=== PATIENT | male | born 1995 | race Caucasian/White ===

== ENCOUNTER 2017-01-06 11:58 | Inpatient (IN) | payer BC, OTHER ==
[~2017-01-06] VITALS: Ht 182.9 cm; Wt 64.0 kg
[2017-01-06] MEDS ORDERED: ONDANSETRON ODT 4 MG TAB.RAPDIS SL PRN (12:30)
[2017-01-06] MEDS ORDERED: LOPERAMIDE HCL 2 MG CAPSULE PO PRN ×2 (12:30)
[2017-01-06] MEDS ORDERED: ONDANSETRON 4 MG/2 ML VIAL IM PRN (12:30)
[2017-01-06] MEDS ORDERED: LORAZEPAM 1 MG TABLET PO PRN (12:30)
[2017-01-06] MEDS ORDERED: IBUPROFEN 600 MG TABLET PO PRN (12:30)
[2017-01-06] MEDS ORDERED: ACETAMINOPHEN 325 MG TABLET PO PRN (12:30)
[2017-01-06] MEDS ORDERED: DICYCLOMINE HCL 20 MG TABLET PO PRN (12:30)
[2017-01-06] MEDS ORDERED: MAG HYDROX/AL HYDROX/SIMETH 30 ML LIQUID UDC PO PRN (12:30)
[2017-01-06] MEDS ORDERED: BUPRENORPHINE HCL 2 MG TAB.SUBL SL PRN (12:30)
[2017-01-06] MEDS ORDERED: CLONIDINE HCL 0.1 MG TABLET PO PRN (12:30)
[2017-01-06] MEDS ORDERED: MAGNESIUM HYDROXIDE 30 ML LIQUID UDC PO PRN (12:30)
[2017-01-06] MEDS ORDERED: HYDROXYZINE PAMOATE 25 MG CAPSULE PO PRN (12:30)
[2017-01-06] MEDS ORDERED: MIRALAX 17 GM POWD.PACK PO PRN (12:30)
--- NOTE | 2017-01-06 12:30 | NUR ---
INTAKE ASSESSMENT Received patient in intake. He is AOX4, stable, and ambulatory. Vital signs WNL. Patient reports NKA. Patient denies seizure hx. Pt did not bring any home medications with him. Explained unit protocols and patient verbalized understanding. Will admit patient upon admission to third floor.
--- NOTE | 2017-01-06 14:45 | NUR ---
ADMISSION NOTE Pt is a 21 year old male, admitted on 01/07/16 at 12:48 for Heroin and methamphetamine Dependence and medically supervised withdrawals. Pts skin and body check completed, no contraband found, Pt has a small healed pick villafana all over his body . Pt awake, alert, oriented x 4, gait steady, pt is ambulatory without assistance. Pt weights 140 pounds and his height is 60. Denies any history of seizures. Pt escorted to room 302 where the rest of assessment was completed. Pt is primary source of information, information consistent, speech coherent. Pt did not bring any home medications. Pt refused PNA and Flu Vaccinations stating that he will receive it somewhere else. Pt states that he does not have a PCP and pt denies having a psychiatrist or a psychologist. Pt requested to be full code, regular diet on fall precautions, Pt denies any allergies. His last BM was on 01/05/17. Pt states that he lives in a house with his Parents. Pt denies smoking cigarettes. Pt denies being admitted to a hospital in the past 30 days, Pt is not a candidate for MRSA. Pts initial vital signs are BP: 117/67, Temp: 98.3, Pulse: 96 SPO2: 98% RR:18 and states that he has 0/10 pain. Pts initial COWS score was a 7. Pt denies any PMH. Pt denies being sober for any period of time during his use. Pt stated that he does not attend AA meetings. Pt reported family history of abuse, his grandfather, grandfather and father were alcoholics. Pt denies any suicidal or homicidal ideations. Substance use Hx: 1.Heroin: Pt reported first using when he was 1year ago, he has been injecting and smoking 1-2 grams daily for 6 months, his last use was 2 days ago, 1 gram IV. 2.Meth: Pt first used meth at age 18, he has been smoking/injecting 1 gram daily, he last used 2 days ago 1 gram IV. Rehab history: Pt denies any rehab history, it his first time in treatment. Pt cooperative, appears depressed, reports moderate anxiety. Educated on relaxation techniques (deep breathing) pt verbalized understanding. Pt denies SI/HI at this time, denies hallucinations. Skin warm and moist from sweat, color pink, consistent throughout the body. Eyes PERLLA, tremors not noted but felt. Pt denied tingling. All extremities with full ROM. Lung sounds clear bilaterally, no cough present, pt denies SOB. Heart rate regular. Cap refill <3 sec. No edema noted. Abdomen soft, round, bowel sounds active x 4, non tender. Pt denies urinary difficulties, urine was provided and sent to lab. Pt oriented to unit, room, equipment, shown how to use call light, provided returned demonstration. Fall precautions in place. Side rails up x2, call light within reach, bed locked in low position. MD contacted and aware of patients condition. All admitting orders have been placed, Pt is placed on a 5 day Subutex taper which starts tomorrow.
[2017-01-06 16:00] VITALS: BP 120/65
[2017-01-06 16:10] LABS: *AMPHETAMINE, URINE POSITIVE (NEGATIVE); *BARBITURATE, URINE NEGATIVE (NEGATIVE); *CANNABINOID, URINE POSITIVE (NEGATIVE); *COCCAINE, URINE NEGATIVE (NEGATIVE); *OPIATE, URINE POSITIVE (NEGATIVE); *PHENCYCLIDINE SCREEN,URINE NEGATIVE (NEGATIVE)
[2017-01-06] MEDS: BUPRENORPHINE HCL 2 MG TAB.SUBL SL SCH ×2 (16:44→20:42)
--- NOTE | 2017-01-06 19:21 | NUR ---
End Of Shift VS monitored closely. Withdrawal symptoms were closely monitored. Initial COWS 7. Patient encouraged adequate PO fluid intake as tolerated. Patient presented with tremors and anxiety during the day. Last COWS 10. Pt received a dose of Subutex 4mg. Pt ate all of his meals. Pt received PRN Vistaril for anxiety which was effective. Patient encouraged to attend group therapies/sessions to learn new coping skills to recent relapse, patient denies SI/HI. Participated in group and therapy sessions. All needs met and attended, pt endorsed to shift coordinator nurse.
[2017-01-06 20:00] VITALS: BP 124/74
--- NOTE | 2017-01-06 20:00 | NUR ---
Start of Shift Note Received a 21 year old male, admitted on 01/07/16 at 12:48 for Heroin and methamphetamine dependence. A&Ox4, gait steady, px is ambulatory without assistance. Denies any history of seizures. Px is on full code, regular diet, NKA and on fall precautions. During the rounds at 1999, Px cooperative, appears depressed, reports mild anxiety. Complained of generalized body ache 09/30. Requesting also for pill to help him sleep. Fall precautions in place. Side rails up x2, call light within reach, bed locked in low position. Respirations are even and unlabored. Bed on lowest position, side rails up x2. Call light within reach. Well continue to monitor.
[2017-01-06] MEDS: diphenhydrAMINE 50 MG CAPSULE PO PRN (20:41)
[2017-01-06] MEDS: METHOCARBAMOL 750 MG TABLET PO PRN (20:41)
--- NOTE | 2017-01-06 20:41 | NUR ---
PRN Robaxin and Benadryl Px complained of generalized body aches 09/30 and requested pill to help him sleep. Robaxin 750 mg/tab, 1 tab and Benadryl 50 mg/cap, 1 cap given PO as PRN meds. We'll continue to monitor.
[2017-01-06 21:16] LABS: BASOPHILS # (AUTO) 0.1 K/uL (0.0-8.0); BASOPHILS % (AUTO) 0.6 % (0.0-2.0); EOSINOPHILS # (AUTO) 0.1 K/uL (0.0-0.7); EOSINOPHILS % (AUTO) 0.6 % (0.0-7.0); HEMATOCRIT 43.9 % (40-50); HEMOGLOBIN 14.6 G/DL (14.0-18.0); LYMPHOCYTES # (AUTO) 2.7 K/UL (0.8-4.8); LYMPHOCYTES % (AUTO) 18.1 % (20.5-51.5); MEAN CORPUSCULAR HGB CONC 33 g/dL (32.0-37.0); MEAN CORPUSCULAR VOLUME 86.9 FL (82.0-92.0); MONOCYTES # (AUTO) 0.7 K/UL (0.1-1.30); NEUTROPHILS # (AUTO) 11.3 K/UL (1.8-8.9); NEUTROPHILS % (AUTO) 75.7 % (38.5-71.5); PLATELET COUNT (AUTO) 347 K/UL (150-450); RED BLOOD CELL COUNT(AUTO) 5.05 MIL/UL (4.7-6.1); WHITE BLOOD COUNT (AUTO) 14.9 K/UL (4.0-11.2)
[2017-01-06 21:30] LABS: ETHANOL < 3 MG/DL (0-0)
[2017-01-06 21:34] LABS: ALANINE AMINOTRANSFERASE 21 U/L (16-63); ALKALINE PHOSPHATASE 70 U/L (50-136); ASPARTATE AMINOTRANSFERASE 9 U/L (15-37); BILIRUBIN,TOTAL 0.2 mg/dL (0.2-1.0); CARBON DIOXIDE 30 mmol/L (21-32); CHLORIDE 107 mmol/L (98-107); CREATININE 0.9 mg/dL (0.6-1.3); GLUCOSE 95 mg/dL (74-106); TOTAL PROTEIN, SERUM 7.1 g/dL (6.4-8.2); UREA NITROGEN, BLOOD 11 mg/dL (7-18)
--- NOTE | 2017-01-06 21:41 | NUR ---
Reassessment of Pain Reassessment of pain was deferred due to the px is sleeping at this time. Respirations are even and unlabored. We'll continue to monitor.
[2017-01-07] VITALS: BP 114/65
--- NOTE | 2017-01-07 | NUR ---
COWS deferred COWS deferred due to the px is sleeping, to be assess if the px is awake per doctor's order. Respirations are even and unlabored. We'll continue to monitor.
[2017-01-07 04:00] VITALS: BP 109/69
--- NOTE | 2017-01-07 07:23 | NUR ---
End of Shift Note 21 year old male, admitted on 01/07/16 at 12:48 for Heroin and methamphetamine dependence. A&Ox4, gait steady, px is ambulatory without assistance. Denies any history of seizures. Px is on full code, regular diet on fall precautions, NKA. During the shift, complained of generalized body ache 10 and requesting a pill to help him sleep. Robaxin 750 mg/tab, 1 tab and Benadryl 50 mg/cap, 1 cap given PO as PRN meds. Oral intake of 400 ml, voided 1x, No BM. Slept for 9.5 hrs. Fall precautions in place. Side rails up x2, call light within reach, bed locked in low position. Respirations are even and unlabored. We'll continue to monitor.
--- NOTE | 2017-01-07 07:45 | NUR ---
START OF SHIFT Rcvd endorsement from ongoing nurse, client is in bed, he is a/o x name, place, he presents with depressed mood, flat affect, watery eyes, runny nose, Goosebump, and no appetite. Client noted with scattered self inflicted by picking at skin superficial wounds on R side of neck, R hand, bilateral knee; he is on triple antibiotic topical BID. Encouraged client to attend group therapy for skills to maintain sober. Encouraged client to increase PO fluid as tolerated to facilitate detox. Client is a 21 y/o male, admitted to [facility] for withdrawal from heroin. Client is on 5 day Subutex taper, tolerating well. Last COWS 6 @ 2000. He denies any hx of of withdrawal-induced seizures, he is on universal precautions. He reports of allergy to cat dander, he is full code, Regular diet. Side rails x 2 up/padded. Call light within reach.
[2017-01-07 08:00] VITALS: BP 108/73
[2017-01-07] MEDS ORDERED: TUBERCULIN,PURIF.PROT.DERIV. 5 TU/0.1 ML TEST ID ONE (09:00)
[2017-01-07] MEDS: BUPRENORPHINE HCL 2 MG TAB.SUBL SL SCH ×3 (09:53→20:47)
[2017-01-07] MEDS: NEOMY/BACITRAC/POLYMI OINT 28.35 GM TUBE TOP SCH ×2 (09:53→17:18)
[2017-01-07 12:55] VITALS: BP 110/69
[2017-01-07] MEDS: METHOCARBAMOL 750 MG TABLET PO PRN (14:50)
--- NOTE | 2017-01-07 14:50 | NUR ---
PRN Robaxin 750mg PO, Tylenol 650mg PO, and Bentyl 20mg PO given for generalized muscle pain, body aches 7/10, and abdominal spasms respectively. Encourage to increase PO fluid as tolerated to facilitate detox. Call light within reach. will continue to monitor.
--- NOTE | 2017-01-07 15:50 | NUR ---
Reassessment PRN Robaxin 750mg PO, Tylenol 650mg PO, and Bentyl 20mg PO effective client is in bed, sounc asleep, RR 16 even, non-labored. Call light within reach.
[2017-01-07 16:55] VITALS: BP 116/66
--- NOTE | 2017-01-07 19:15 | NUR ---
END OF SHIFT Client is a 21 y/o male, admitted to [facility] for withdrawal from heroin. Client is on 5 day Subutex taper, tolerating well. Last COWS 10 @ 1600. PRN Robaxin 750mg PO, Tylenol 650mg PO, and Bentyl 20mg PO given for generalized muscle pain, body aches 7/10, and abdominal spasms respectively, noted effective. Encouragement needed to comply with group therapy to help with skills to maintain sober. Adequate fluid PO intake 2134mL, void x 3.He denies any hx of of withdrawal-induced seizures, he is on universal precautions. He reports of allergy to cat dander, he is full code, Regular diet. Side rails x 2 up/padded. Call light within reach.
--- NOTE | 2017-01-07 19:30 | NUR ---
Start of Shift Note Received a 21 year old male, admitted on 01/07/16 at 12:48 for Heroin and methamphetamine dependence. A&Ox4, gait steady, px is ambulatory without assistance. Denies any history of seizures. Px is on full code, regular diet, NKA and on fall precautions. During the rounds at 1930, Px cooperative, reports depressed. Complained of generalized body ache 5/10. Requesting also for pill to help him sleep. COWS 5. Fall precautions in place. Side rails up x2, call light within reach, bed locked in low position. Respirations are even and unlabored. Bed on lowest position, side rails up x2. Call light within reach. We'll continue to monitor.
[2017-01-07 20:00] VITALS: BP 102/61
[2017-01-07] MEDS: GABAPENTIN 300 MG CAPSULE PO SCH (20:46)
[2017-01-07] MEDS: diphenhydrAMINE 50 MG CAPSULE PO PRN (20:47)
[2017-01-07] MEDS: DOXYCYCLINE HYCLATE 100 MG TABLET PO SCH (20:47)
--- NOTE | 2017-01-07 20:47 | NUR ---
PRN Benadryl and Motrin Px complained of generalized body aches 5/10 and requesting for pill to help him sleep. Motrin 600 mg/tab, 1 tab and Benadryl 50 mg/cap, 1 cap given PO as PRN meds. We'll continue to monitor.
--- NOTE | 2017-01-07 21:47 | NUR ---
Reassessment of pain Px verbalized that the pain improved from 5/10 to 3/10. We'll continue to monitor.
[2017-01-08] VITALS: BP 118/55
[2017-01-08 04:00] VITALS: BP 102/57
[2017-01-08 07:06] LABS: HEPATITIS B SURFACE AG Negative (Negative)
--- NOTE | 2017-01-08 07:16 | NUR ---
End of Shift Note 21 year old male, admitted on 01/07/16 at 12:48 for Heroin and methamphetamine dependence. A&Ox4, gait steady, px is ambulatory without assistance. Denies any history of seizures. Px is on full code, regular diet, NKA and on fall precautions. During the shift, Px reports hes depressed more than anxious. Px complained of generalized body aches 5/10 and requesting for pill to help him sleep. Motrin 600 mg/tab, 1 tab and Benadryl 50 mg/cap, 1 cap given PO as PRN meds. Px verbalized that the pain improved from 5/10 to 3/10 after an hour of Motrin administration. Oral intake of 1,200 ml, voided x2, no BM. Slept for [address] hrs[address] Fall precautions in place. Side rails up x2, call light within reach, bed locked in low position. Respirations are even and unlabored. Last COWS 5. We'll continue to monitor.
[2017-01-08 08:00] VITALS: BP 100/64
--- NOTE | 2017-01-08 08:05 | NUR ---
START OF SHIFT: RECEIVED PT A/O X 4. HE PRESENTS WITH ANXIOUS MOOD AND CONGRUENT AFFECT.HE REPORTS BODY ACHES,CHILLS,SWEATS AND ANXIETY. COWS 8. SUBUTEX TAPER IN PROGRESS TO MANAGE S/S OF W/D. HE STATES THE DETOX MEDS ARE EFFECTIVE. ENCOURAGED INCREASED FLUIDS TO ASSIST IN FACILITATING DETOX PROCESS. WILL CONTINUE TO MONITOR AND OFFER SUPPORT.
[2017-01-08] MEDS ORDERED: BUPRENORPHINE HCL 2 MG TAB.SUBL SL SCH (09:00)
[2017-01-08] MEDS: GABAPENTIN 300 MG CAPSULE PO SCH ×3 (09:17→20:23)
[2017-01-08] MEDS: DOXYCYCLINE HYCLATE 100 MG TABLET PO SCH ×2 (09:17→20:23)
[2017-01-08] MEDS: NEOMY/BACITRAC/POLYMI OINT 28.35 GM TUBE TOP SCH ×2 (09:18→17:00)
--- NOTE | 2017-01-08 10:00 | NUR ---
Activity Group Note: Attempt made for group participation. Client refused. Will attempt when time permits.
[2017-01-08 12:00] VITALS: BP 112/60
--- NOTE | 2017-01-08 13:45 | NUR ---
Activity Group Note: Attempt made for group participation. Client refused. Will attempt again when time permits.
--- NOTE | 2017-01-08 14:11 | NUR ---
Therapist prompted client about group times. Client stated he will attend groups today.
[2017-01-08] MEDS: BUPRENORPHINE HCL 2 MG TAB.SUBL SL SCH ×2 (15:44→20:23)
[2017-01-08 16:00] VITALS: BP 125/60
--- NOTE | 2017-01-08 18:47 | NUR ---
END OF SHIFT: PT CONTINUES ON SUBUTEX TAPER. LAST COWS 6. HE ISOLATED IN HIS ROOM MOST OF SHIFT WITH VERY LITTLE INTERACTION WITH PEERS. HE C/O CHILLS,BODY ACHES,SWEATS AND ANXIETY EARLIER THIS AM AND STATES THE DETOX MEDS ARE EFFECTIVE. HE WAS COMPLIANT WITH INCREASED FLUIDS . WILL PASS SHIFT REPORT TO ONCOMING NIGHT NURSE.
--- NOTE | 2017-01-08 19:00 | NUR ---
Start of Shift Patient Received. Patient is in his room, awake, alert and verbally responsive. Breathing even and non labored. Patient is a 21 year old male admitted on 01/06/17 for Opiate Dependence under the care of Dr. Neri. Patient is continuing on a 5 day Subutex taper. Patient verbalizes no known allergies, wishes to be full code, following a regular diet, placed on fall precautions. Skin noted with multiple scabs throughout his body due to his substance use. Patient denies past medical history. Per endorsement, patient continues on Doxycycline for Multiple scattered open wounds. No PRN medications administered. Last noted COWS 6. All needs attended to promptly. Will continue plan of care as ordered.
[2017-01-08 20:20] VITALS: BP 121/70
[2017-01-08] MEDS: diphenhydrAMINE 50 MG CAPSULE PO PRN (20:23)
[2017-01-08] MEDS: CLONIDINE HCL 0.1 MG TABLET PO SCH (20:23)
--- NOTE | 2017-01-08 20:23 | NUR ---
PRN Medication Administration patient verbalizing inability of falling asleep. PRN Benadryl administered as per orders. Will continue to monitor.
--- NOTE | 2017-01-08 21:30 | NUR ---
PRN Medication Reassessment Patient noted in bed sleeping. Breathing even and non labored. PRN Benadryl noted to be effective. Will continue to monitor.
[2017-01-09 00:12] VITALS: BP 102/59
[2017-01-09 04:00] VITALS: BP 99/54
--- NOTE | 2017-01-09 07:20 | NUR ---
End of Shift Patient is in bed sleeping but easily aroused to verbal stimuli. Breathing even and non labored. Patient is a 21 year old male admitted on 01/06/17 for Opiate Dependence and continues on a 5 day Subutex taper. No known allergies, Full Code, Regular Diet, placed on fall precautions. Skin noted with multiple scabs throughout his body due to his substance use. Patient denies past medical history. Patient continues on Doxycycline for Multiple scattered open wounds. Patient was given PRN Benadryl for sleep with medication noted to be effective. Patient slept 9 hours. Last noted COWS 5. All needs attended to promptly. Will endorse to continue plan of care as ordered.
--- NOTE | 2017-01-09 07:42 | NUR ---
BEGINNING OF SHIFT Patient endorsement report received from worm sorter nurse, all pertinent information discussed. Patient is a 21 year old Male admitted on: 01/06/2017 with admitting Dx:Opiate dependence, And substance use of:Methamphetamine. Patient currently under close observation, continues on 5 day Subutex taper as ordered, and is scheduled to begin day 4 of taper. Per worm sorter patient slept for 9 hours, received PRN: Benadryl as ordered. Patient with last cow score of: 5. Patient received awake, alert and oriented x4, patient educated regarding plan of care and medication regimen for the day with good verbal understanding. Safety measures in place. call light kept with in reach, will continue to monitor.
[2017-01-09 08:36] VITALS: BP 106/64
[2017-01-09] MEDS: BUPRENORPHINE HCL 2 MG TAB.SUBL SL SCH ×3 (08:37→21:38)
[2017-01-09] MEDS: NEOMY/BACITRAC/POLYMI OINT 28.35 GM TUBE TOP SCH ×2 (08:37→17:12)
[2017-01-09] MEDS: DOXYCYCLINE HYCLATE 100 MG TABLET PO SCH ×2 (08:37→21:38)
[2017-01-09] MEDS: GABAPENTIN 300 MG CAPSULE PO SCH (08:37)
[2017-01-09] MEDS: CLONIDINE HCL 0.1 MG TABLET PO SCH ×3 (08:38→21:39)
--- NOTE | 2017-01-09 10:37 | NUR ---
WOUND CARE CONSULT WOUND CARE RECEIVED CONSULT AND WILL DEFER TO SURGICAL TEAM AT THIS TIME. PATIENT HAD INITIAL I+D DONE IN ER AT [facility] AND MAY STILL REQUIRE ADDITIONAL I+D. DR MCKAYLA KOCH HAS BEEN CALLED TO EVALUATE PATIENT. PATIENT CURRENT BRANDON AT 21. Addendum: 01/09/17 at 1039 by JUSTYNA PARDO WNDNU DISCUSSED WITH RUBBER STAMP MAKER VIA PHONE.
--- NOTE | 2017-01-09 13:45 | NUR ---
Activity Group Note: Client participated in "R[employer]" activity. Intervention goal was to increase task focus and leisure skills. Client arrived 30 minutes late to activity, but he was willing to participate. Client was able to understand and complete the task. He appeared to have a calm affect with congruent mood. He was able to initiate conversation with peers. Client stated that he was "glad he went to yoga yesterday and was curious what today would be like." Client benefits from leisure activities and social interaction with peers. merchandise worker will continue to encourage participation.
[2017-01-09 13:50] VITALS: BP 113/62
[2017-01-09] MEDS: GABAPENTIN 400 MG CAPSULE PO SCH ×2 (14:07→21:38)
[2017-01-09 16:50] VITALS: BP_SYST 103; BP_SYST 113; BP_DIAS 61; BP_DIAS 62
--- NOTE | 2017-01-09 18:51 | NUR ---
END OF SHIFT Patient alert and oriented x4, vital signs were stable during shift. Patient compliant with therapeutic plan of care. Patients continues under close observation. patient with admitting Dx: opiate dependence. currently with ongoing taper of Subutex 5 day, currently on day 4 of taper, well tolerated, no ASE noted, continues under close observation. 0900 assessment patient presented with: heart rate of 82, yawning, mild anxiety and mild bone and Joint aches with cow score of: 5; 1300 assessment patient presented with: heart rate of 89, mild and anxiety and mild bone and joint aches with cow score of: 3; 1700 assessment patient presented with: heart rate of 82 mild and anxiety and mild bone and joint aches with cow score of: 3. Patient encouraged adequate PO fluid intake as tolerated. Patient encouraged to attend group therapies/sessions to learn new coping skills to prevent relapse. Denies SI/HI. safety measures in place. call light kept with in reach, patient endorsed to catheterization laboratory technician nurse, all pertinent information discussed. will continue to monitor.
--- NOTE | 2017-01-09 19:00 | NUR ---
Start of Shift Patient Received. Patient is noted in bed awake, alert and verbally responsive. Breathing even and non labored. Patient is a 21 year old male admitted on 01/06/17 for Opiate Dependence and continues on a 5 day Subutex taper. No known allergies, Full Code, Regular Diet, placed on fall precautions. Skin noted with multiple scabs throughout his body due to his substance use and continues on ATB Therapy of Doxycycline. Patient denies past medical history. No PRN medications administered as per order. Last noted COWS 3. All needs attended to promptly. Will continue plan of care as ordered.
[2017-01-09 20:30] VITALS: BP 111/66
[2017-01-09] MEDS: diphenhydrAMINE 50 MG CAPSULE PO PRN (21:38)
--- NOTE | 2017-01-09 21:40 | NUR ---
PRN Medication Administration Patient is verbalizing inability of falling asleep. PRN Benadryl administered as per order. Will continue to monitor.
--- NOTE | 2017-01-09 22:30 | NUR ---
PRN Medication Reassessment Patient noted in bed sleeping. Breathing even and non labored. No signs of pain or discomfort noted. Patient was given PRN Benadryl for inability of falling asleep. Medication noted to be effective. Will continue to monitor.
[2017-01-10 00:25] VITALS: BP 101/60
[2017-01-10] MEDS: CLONIDINE HCL 0.1 MG TABLET PO SCH ×3 (09:00→21:11)
[2017-01-10] MEDS: DOXYCYCLINE HYCLATE 100 MG TABLET PO SCH ×2 (09:00→21:11)
[2017-01-10] MEDS: NEOMY/BACITRAC/POLYMI OINT 28.35 GM TUBE TOP SCH ×2 (09:00→17:00)
[2017-01-10] MEDS: GABAPENTIN 400 MG CAPSULE PO SCH ×3 (09:00→21:10)
[2017-01-10] MEDS ORDERED: BUPRENORPHINE HCL 2 MG TAB.SUBL SL SCH (09:00)
--- NOTE | 2017-01-10 10:33 | NUR ---
AM MEDS GIVEN ON TIME PER PAPER MAY. CLONIDINE HELD DUE TO LOW BP. PT TOLERATED MEDS WELL AND STATES THEY'RE EFFECTIVE. WILL CONTINUE TO MONITOR AND OFFER SUPPORT.
[2017-01-10 12:00] VITALS: BP 115/60
--- NOTE | 2017-01-10 13:45 | NUR ---
Activity Group Note: Client participated in "Tommy" activity. Intervention goal was to increase task focus and leisure skills. Client arrived 45 min late to activity, but was willing to participate. Client's mood appeared to be euthymic with congruent affect. He had a coherent and goal-directed thought process, as he was able to understand and complete the task. Client stated, "This [the activity] was fun." This was client's second time in a row attending group activity. Client benefits from leisure activities and social interaction with peers. Permit Technician will continue to encourage participation.
[2017-01-10 16:00] VITALS: BP 116/78
--- NOTE | 2017-01-10 18:53 | NUR ---
END OF SHIFT: PT COMPLETED SUBUTEX TAPER. LAST COWS 3. HE STATES HE IS FEELING BETTER AND DETOX MEDS EFFECTIVE. DISCHARGE SCHEDULED FOR 01/11. PT STATES HE LOOKS FORWARD TO CONTINUING WITH RECOVERY PROCESS. WILL PASS SHIFT REPORT TO ONCOMING NIGHT NURSE.
--- NOTE | 2017-01-10 19:00 | NUR ---
Start of Shift Patient Received. Patient is noted in bed awake and watching TV. Breathing even and non labored. No signs of pain or discomfort noted. Patient is a 21 year old male admitted on 01/06/17 for Opiate Dependence and has completed a 5 day Subutex taper. No known allergies, Full Code, Regular Diet, placed on fall precautions. Skin noted with multiple scabs throughout his body due to his substance use and continues on ATB Therapy of Doxycycline. Patient denies past medical hisotry. Patient No PRN medications administered as per order. Last noted COWS 3. All needs attended to promptly. Will continue to monitor.
--- NOTE | 2017-01-10 19:11 | NUR ---
END OF SHIFT: PT COMPLETED TAPERS. LAST COWS 2 CIWA 3. HE STATES THE DETOX MEDS ARE EFFECTIVE. NO PRNS GIVEN. DISCHARGE PLANNING IN PROGRESS FOR 01/11. HE ATTENDED GROUPS AND COOPERATED WITH STAFF TODAY. WILL PASS SHIFT REPORT TO [facility] NIGHT NURSE. Addendum: 01/10/17 at 1916 by LUPE HA RN LAST NOTE DISREGARD.
[2017-01-10 20:57] VITALS: BP 106/62
[2017-01-10] MEDS: diphenhydrAMINE 50 MG CAPSULE PO PRN (21:10)
--- NOTE | 2017-01-10 21:10 | NUR ---
PRN Medication Administration Patient verbalizing inability of falling asleep. Breathing even and non labored. PRN Benadryl administered as per order. Will continue to monitor.
--- NOTE | 2017-01-10 22:00 | NUR ---
PRN Medication Reassessment Patient is noted in bed sleeping. Breathing even and non labored. No signs of pain or discomfort noted. PRN Benadryl administered for inability of falling asleep. Medication noted to be effective. Will continue to monitor.
[2017-01-11 00:15] VITALS: BP 103/59
[2017-01-11] MEDS ORDERED: HYDR-3895 PO (01:21)
[2017-01-11] MEDS ORDERED: METH-406 PO (01:21)
[2017-01-11] MEDS ORDERED: CLON0.1T14 PO (01:21)
[2017-01-11] MEDS ORDERED: DOXY100T2 PO (01:21)
[2017-01-11] MEDS ORDERED: IBUP-1955 PO (01:21)
[2017-01-11] MEDS ORDERED: GABA-536 PO (01:21)
[2017-01-11] MEDS ORDERED: DICY20TA28 PO (01:21)
[2017-01-11] MEDS ORDERED: DIPH50CA37 PO (01:21)
[2017-01-11 04:05] VITALS: BP 94/56
--- NOTE | 2017-01-11 07:18 | NUR ---
End of Shift Patient is in bed sleeping. Breathing even and non labored. No signs of pain or discomfort noted. Patient is a 21 year old male admitted on 01/06/17 for Opiate Dependence and has completed a 5 day Subutex taper. No known allergies, Full Code, Regular Diet, placed on fall precautions. Skin noted with multiple scabs throughout his body due to his substance use and continues on ATB Therapy of Doxycycline. Patient denies past medical history. Patient is set for discharge this morning 01/11/17. Patient was given PRN Benadryl with medication noted to be effective. Last noted COWS 3. All needs attended to promptly. Will endorse to continue plan of care as ordered.
--- NOTE | 2017-01-11 07:30 | NUR ---
start of shift note: received pt from night court magistrate nurse, pt is in stable condition no s/s of pain or discomfort. pt is admitted to [facility] for meth and heroin withdrawal/dependence. pts last cows 3. pt is pleasant and compliant. pt is set for discharge. will assist pt in discharging and continue to monitor pt for any changes.
[2017-01-11] MEDS: NEOMY/BACITRAC/POLYMI OINT 28.35 GM TUBE TOP SCH (09:00)
[2017-01-11 09:10] VITALS: BP 100/68
[2017-01-11] MEDS: DOXYCYCLINE HYCLATE 100 MG TABLET PO SCH (09:10)
[2017-01-11] MEDS: CLONIDINE HCL 0.1 MG TABLET PO SCH (09:10)
[2017-01-11] MEDS: GABAPENTIN 400 MG CAPSULE PO SCH (09:10)
--- NOTE | 2017-01-11 09:23 | NUR ---
discharge note: pt left the unit in stable condition, pt without s/s of pain and discomfort. pt teaching administered and pt verbalized understanding. all personal belongings were returned. pt will be transferred to [facility].
== END 2017-01-11 09:23 | disposition other institution (70) | DRG 895 ==
LOC: SRC 12:16
PROVIDERS: ADMIT Internal Medicine; ATTEND Internal Medicine
PROC: HZ2ZZZZ Detoxification Services for Substance Abuse Treatment (ICD-10-PCS; principal; 2017-01-06)
PROC: HZ31ZZZ Individual Counseling for Substance Abuse Treatment, Behavioral (ICD-10-PCS; 2017-01-08)
PROC: HZ41ZZZ Group Counseling for Substance Abuse Treatment, Behavioral (ICD-10-PCS; 2017-01-09)
DX: F11.23 Opioid dependence with withdrawal (principal); D72.829 Elevated white blood cell count, unspecified; F12.10 Cannabis abuse, uncomplicated; T14.8XXS Other injury of unspecified body region, sequela; F13.10 Sedative, hypnotic or anxiolytic abuse, uncomplicated; L03.114 Cellulitis of left upper limb; L03.113 Cellulitis of right upper limb; F17.211 Nicotine dependence, cigarettes, in remission; F15.23 Other stimulant dependence with withdrawal; Z59.0 Homelessness; Z59.1 Inadequate housing; Z82.49 Family history of ischemic heart disease and other diseases of the circulatory system; Z81.8 Family history of other mental and behavioral disorders; Z91.89 Other specified personal risk factors, not elsewhere classified; F41.9 Anxiety disorder, unspecified; Y33.XXXS Other specified events, undetermined intent, sequela
CPT/HCPCS: 36415; 70030-TC; 80307; 80324; 80349; 80361; 83735; 85025; 86580; 86592; 86705; 86803; 87340; 87806; A4663; G0480; Q0163